=== PATIENT | male | born 1975 | race Caucasian/White ===

== ENCOUNTER 2016-11-30 14:48 | Emergency (ER) | payer OTHER ==
[~2016-11-30] VITALS: Ht 177.8 cm; Wt 61.0 kg
[2016-11-30] VITALS (8 sets, daily range): BP systolic 108–128; BP diastolic 73–81; PULSE 84–108; RESP 14–16; TEMP 98.3–99.4; O2SAT 97–98
[~2016-11-30 14:48] MED LIST: DICY1TAB26 PO
[2016-11-30] MEDS ORDERED: SODIUM CHLOR 0.9% 1000 ML INJ 1,000 ML IV SCH (16:32)
--- NOTE | 2016-11-30 16:36 | PD ---
HPI Chief Complaint: Abdominal Pain Time Seen by Provider: 16:21 Travel History International Travel<30 days: No Contact w/Intl Traveler<30days: No Traveled to known affect area: No History of Present Illness HPI 41yo M with no significant PMH presents to the ED with c/o abdominal pain during bowel movement for 5 days. States it is worst during bowel movement and is improved after bowel movement. Does not have pain when he is not having bowel movement but sometimes feels tight. Pt has had this pain intermittently for years and has tried stool softener a few days ago which helped. Denies any fever, chest pain, sob, n/v, dysuria, hematuria, back pain, weakness or numbness. PFSH Past Medical History Hx Anticoagulant Therapy: No Diabetes: No Diminished Hearing: No Thyroid Disease: Yes (HYPERTHYOID) Past Surgical History Other Surgery: Yes (LEFT HAND SURGERY) Social History Alcohol Use: Yes (WEEKLY) Tobacco Use: Yes (1.5 PPD) Substance Use: No Allergies-Medications (Allergen,Severity, Reaction): Coded Allergies: Brown (Verified Allergy, Unknown, 11/30/16) Reported Meds & Prescriptions Reported Meds & Active Scripts Active Acetaminophen Extra Strength (Acetaminophen) 500 Mg Tab 500 Mg PO Q6H PRN Flagyl (Metronidazole) 500 Mg Tab 500 Mg PO TID 10 Days Cipro (Ciprofloxacin HCl) 500 Mg Tab 500 Mg PO BID 10 Days Review of Systems Except as stated in HPI: all other systems reviewed are Neg Physical Exam Narrative GENERAL: 41yo M not in distress. SKIN: Focused skin assessment warm/dry. HEAD: Atraumatic. Normocephalic. EYES: Pupils equal and round. No scleral icterus. No injection or drainage. ENT: No nasal bleeding or discharge. Mucous membranes pink and moist. NECK: Trachea midline. No JVD. CARDIOVASCULAR: Regular rate and rhythm. No murmur appreciated. RESPIRATORY: No accessory muscle use. Clear to auscultation. Breath sounds equal bilaterally. GASTROINTESTINAL: Abdomen soft, Mild ttp LLQ. No rebound tenderness or guarding. : No testicular ttp. No penile rash or discharge. No hernia palpated. MUSCULOSKELETAL: No obvious deformities. No clubbing. No cyanosis. No edema. NEUROLOGICAL: Awake and alert. No obvious cranial nerve deficits. Motor grossly within normal limits. Normal speech. PSYCHIATRIC: Appropriate mood and affect; insight and judgment normal. Data Data Last Documented VS Vital Signs Date Time Temp Pulse Resp B/P Pulse Ox O2 Delivery O2 Flow Rate FiO2 11/30/16 22:27 98.3 76 16 115/77 98 11/30/16 18:10 Room Air Orders Complete Blood Count With Diff (11/30/16 16:32) Comprehensive Metabolic Panel (11/30/16 16:32) Urinalysis - C+S If Indicated (11/30/16 16:32) Iv Access Insert/Monitor (11/30/16 16:32) Ecg Monitoring (11/30/16 16:32) Oximetry (11/30/16 16:32) Sodium Chlor 0.9% 1000 Ml Inj (Ns 1000 M (11/30/16 16:32) Sodium Chloride 0.9% Flush (Ns Flush) (11/30/16 16:45) Ketorolac Inj (Toradol Inj) (11/30/16 16:45) Ct Abd/Pel W Iv Contrast(Rout) (11/30/16 ) Ciprofloxacin (Cipro) (11/30/16 21:30) Metronidazole (Flagyl) (11/30/16 21:30) Iohexol 350 Inj (Omnipaque 350 Inj) (11/30/16 20:02) Labs Laboratory Tests Test 11/30/16 11/30/16 16:40 16:45 Urine Color YELLOW Urine Turbidity CLEAR Urine pH 5.5 Urine Specific [place] 1.016 Urine Protein NEG mg/dL Urine Glucose (UA) NEG mg/dL Urine Ketones TRACE mg/dL Urine Occult Blood MOD Urine Nitrite NEG Urine Bilirubin NEG Urine Leukocyte Esterase NEG Urine RBC 0-3 /hpf Urine WBC 0-2 /hpf Urine Mucus RARE /lpf Microscopic Urinalysis Comment CULT NOT INDICATED White Blood Count 14.8 TH/MM3 Red Blood Count 5.16 MIL/MM3 Hemoglobin 15.9 GM/DL Hematocrit 45.7 % Mean Corpuscular Volume 88.6 FL Mean Corpuscular Hemoglobin 30.8 PG Mean Corpuscular Hemoglobin 34.7 % Concent Red Cell Distribution Width 12.8 % Platelet Count 330 TH/MM3 Mean Platelet Volume 7.9 FL Neutrophils (%) (Auto) 80.1 % Lymphocytes (%) (Auto) 11.2 % Monocytes (%) (Auto) 7.3 % Eosinophils (%) (Auto) 0.6 % Basophils (%) (Auto) 0.8 % Neutrophils # (Auto) 11.8 TH/MM3 Lymphocytes # (Auto) 1.7 TH/MM3 Monocytes # (Auto) 1.1 TH/MM3 Eosinophils # (Auto) 0.1 TH/MM3 Basophils # (Auto) 0.1 TH/MM3 CBC Comment DIFF FINAL Differential Comment Sodium Level 137 MEQ/L Potassium Level 4.1 MEQ/L Chloride Level 100 MEQ/L Carbon Dioxide Level 27.5 MEQ/L Anion Gap 10 MEQ/L Blood Urea Nitrogen 10 MG/DL Creatinine 0.97 MG/DL Estimat Glomerular Filtration 84 ML/MIN Rate Random Glucose 87 MG/DL Calcium Level 9.2 MG/DL Total Bilirubin 0.6 MG/DL Aspartate Amino Transf 21 U/L (AST/SGOT) Alanine Aminotransferase 21 U/L (ALT/SGPT) Alkaline Phosphatase 86 U/L Total Protein 8.3 GM/DL Albumin 3.6 GM/DL MDM Medical Decision Making Medical Screen Exam Complete: Yes Emergency Medical Condition: Yes Interpretation(s) Laboratory Tests Test 11/30/16 11/30/16 16:40 16:45 Urine Color YELLOW (YELLW/STRAW) Urine Turbidity CLEAR (CLEAR) Urine pH 5.5 (5.0-8.5) Urine Specific [place] 1.016 (1.002-1.035) Urine Protein NEG mg/dL (NEG-TRACE) Urine Glucose (UA) NEG mg/dL (NEG) Urine Ketones TRACE mg/dL (NEG) Urine Occult Blood MOD (NEG) Urine Nitrite NEG (NEG) Urine Bilirubin NEG (NEG) Urine Leukocyte Esterase NEG (NEG) Urine RBC 0-3 /hpf (0-3) Urine WBC 0-2 /hpf (0-5) Urine Mucus RARE /lpf (OCC) Microscopic Urinalysis Comment CULT NOT INDICATED White Blood Count 14.8 TH/MM3 (4.0-11.0) Red Blood Count 5.16 MIL/MM3 (4.50-5.90) Hemoglobin 15.9 GM/DL (13.0-17.0) Hematocrit 45.7 % (39.0-51.0) Mean Corpuscular Volume 88.6 FL (80.0-100.0) Mean Corpuscular Hemoglobin 30.8 PG (27.0-34.0) Mean Corpuscular Hemoglobin 34.7 % Concent (32.0-36.0) Red Cell Distribution Width 12.8 % (11.6-17.2) Platelet Count 330 TH/MM3 (150-450) Mean Platelet Volume 7.9 FL (7.0-11.0) Neutrophils (%) (Auto) 80.1 % (16.0-70.0) Lymphocytes (%) (Auto) 11.2 % (9.0-44.0) Monocytes (%) (Auto) 7.3 % (0.0-8.0) Eosinophils (%) (Auto) 0.6 % (0.0-4.0) Basophils (%) (Auto) 0.8 % (0.0-2.0) Neutrophils # (Auto) 11.8 TH/MM3 (1.8-7.7) Lymphocytes # (Auto) 1.7 TH/MM3 (1.0-4.8) Monocytes # (Auto) 1.1 TH/MM3 (0-0.9) Eosinophils # (Auto) 0.1 TH/MM3 (0-0.4) Basophils # (Auto) 0.1 TH/MM3 (0-0.2) CBC Comment DIFF FINAL Differential Comment Sodium Level 137 MEQ/L (136-145) Potassium Level 4.1 MEQ/L (3.5-5.1) Chloride Level 100 MEQ/L (98-107) Carbon Dioxide Level 27.5 MEQ/L (21.0-32.0) Anion Gap 10 MEQ/L (5-15) Blood Urea Nitrogen 10 MG/DL (7-18) Creatinine 0.97 MG/DL (0.60-1.30) Estimat Glomerular Filtration 84 ML/MIN (>89) Rate Random Glucose 87 MG/DL (74-106) Calcium Level 9.2 MG/DL (8.5-10.1) Total Bilirubin 0.6 MG/DL (0.2-1.0) Aspartate Amino Transf 21 U/L (15-37) (AST/SGOT) Alanine Aminotransferase 21 U/L (12-78) (ALT/SGPT) Alkaline Phosphatase 86 U/L (45-117) Total Protein 8.3 GM/DL (6.4-8.2) Albumin 3.6 GM/DL (3.4-5.0) Last Impressions Abdomen/Pelvis CT 11/30/16 0000 Signed Impressions: Service Date/Time: Wednesday, November 30, 2016 19:49 - CONCLUSION: Diffuse wall thickening and pericolic inflammatory changes in the region of the sigmoid colon consistent with acute diverticulitis. No pericolic abscess is noted. Radames Sandhu MD Differential Diagnosis Constipation vs. colitis vs. UTI vs. nephrolithiasis Narrative Course 41yo M with abdominal pain that is worst with bowel movement. Pain improved after toradol. Pt reevaluated and abdominal exam is benign. Labs reviewed, leukocytosis at 14.8. CMP unremarkable. UA showed no leukocyte. CT abd/ pelvis showed diffuse wall thickening and pericolic inflammatory changes in sigmoid colon consisting with acute diverticulitis. No pericolic abscess. Pt is well appearing and tolerating PO. Pt given first dose of cipro and flagyl. Strict return precautions given. Diagnosis Primary Impression: Diverticulitis Qualified Code: K57.32 - Diverticulitis of large intestine without perforation or abscess without bleeding Patient Instructions: General Instructions Departure Forms: Tests/Procedures Additional Instructions: Please follow up with your PMD in 3-7 days. Return to the ED if symptoms worsen. Med/Other Pt SpecificInfo: Prescription(s) given Scripts Acetaminophen (Acetaminophen Extra Strength)500 Mg Tmg882 Mg PO Q6H PRN (PAIN SCALE 1 TO 4) #20 TAB Ref 0 Prov:Marcy Adan DO 11/30/16 Metronidazole (Flagyl)500 Mg Sez150 Mg PO TID 10 Days Ref 0 Prov:Marcy Adan DO 11/30/16 Ciprofloxacin (Cipro)500 Mg Fxm041 Mg PO BID 10 Days Ref 0 Prov:Marcy Adan DO 11/30/16 Disposition: 01 DISCHARGE HOME Condition: Stable Marcy Adan DO Nov 30, 2016 16:36
[2016-11-30] MEDS ORDERED: SODIUM CHLORIDE 0.9% FLUSH 10 ML FLUSH IV FLUSH PRN (16:45)
[2016-11-30] MEDS ORDERED: KETOROLAC TROMETHAMINE 30 MG/ML (IVP) VIAL IVP ONE (16:45)
[2016-11-30 16:59] LABS: AUTOMATED NEUTROPHIL # 11.8 TH/MM3 (1.8-7.7); BASOPHIL # 0.1 TH/MM3 (0-0.2); BASOPHIL % 0.8 % (0.0-2.0); EOSINOPHIL # 0.1 TH/MM3 (0-0.4); EOSINOPHIL % 0.6 % (0.0-4.0); HEMATOCRIT 45.7 % (39.0-51.0); HEMO FLAGS DIFF FINAL; LYMPH % 11.2 % (9.0-44.0); LYMPHOCYTE # 1.7 TH/MM3 (1.0-4.8); MEAN CELL VOLUME 88.6 FL (80.0-100.0); MEAN CORPUSCULAR HEMOGLOBIN 30.8 PG (27.0-34.0); MEAN CORPUSCULAR HGB CONC 34.7 % (32.0-36.0); MONO % 7.3 % (0.0-8.0); NEUT % 80.1 % (16.0-70.0); PLATELET COUNT 330 TH/MM3 (150-450); RED BLOOD COUNT 5.16 MIL/MM3 (4.50-5.90); RED CELL DISTRIBUTION WIDTH 12.8 % (11.6-17.2); WHITE BLOOD COUNT 14.8 TH/MM3 (4.0-11.0)
[2016-11-30 17:04] LABS: GLUCOSE,URINE NEG (NEG); KETONE, URINE TRACE mg/dL (NEG); NITRITE,URINE NEG (NEG); PH, URINE 5.5 (5.0-8.5)
[2016-11-30 17:04] LABS: CHLORIDE 100 MEQ/L (98-107); POTASSIUM 4.1 MEQ/L (3.5-5.1); SODIUM (NA) 137 MEQ/L (136-145)
[2016-11-30 17:09] LABS: ANION GAP 10 MEQ/L (5-15); BICARBONATE 27.5 MEQ/L (21.0-32.0); BLOOD UREA NITROGEN 10 MG/DL (7-18)
[2016-11-30 17:12] LABS: ALT (GPT) 21 U/L (12-78); AST (GOT) 21 U/L (15-37); GLOMERULAR FILTRATION RATE 84 ML/MIN (>89)
[2016-11-30 17:13] LABS: BLOOD, URINE MOD (NEG)
[2016-11-30 17:14] LABS: TOTAL BILIRUBIN ADULT 0.6 MG/DL (0.2-1.0)
[2016-11-30 17:14] LABS: URINE COLOR YELLOW (YELLW/STRAW)
[2016-11-30 17:15] LABS: ALKALINE PHOSPHATASE 86 U/L (45-117)
[2016-11-30 17:15] LABS: COMMENT (UR) CULT NOT INDICATED; CULTURE IF INDICATED CULT NOT INDICATED; MUCUS URINE RARE /lpf (OCC); RBC, URINE 0-3 /hpf (0-3); WBC, URINE 0-2 /hpf (0-5)
[2016-11-30] MEDS ORDERED: IOHEXOL 350 MG/ML 10 ML VIAL (for RAD DIAG) IV ONE (20:02)
--- NOTE | 2016-11-30 20:30 | RADHPO ---
EXAM DATE/TIME: 11/30/2016 19:49 [facility] COMPARISON: No previous studies available for comparison. INDICATIONS : Abdominal pain with bowel movement. IV CONTRAST: 100 cc Omnipaque 350 (iohexol) IV ORAL CONTRAST: No oral contrast ingested. RADIATION DOSE: 5.36 CTDIvol (mGy) MEDICAL HISTORY : None SURGICAL HISTORY : None. ENCOUNTER: Initial ACUITY: 4 - 6 days PAIN SCALE: 3/10 LOCATION: lower quadrant TECHNIQUE: Volumetric scanning of the abdomen and pelvis was performed. Using automated exposure control and ad justment of the mA and/or kV according to patient size, radiation dose was kept as low as reasonably achievable to obtain optimal diagnostic quality images. FINDINGS: LOWER LUNGS: Minimal posterior bibasilar atelectasis is noted. LIVER: Homogeneous density without lesion. There is no dilation of the biliary tree. No calcified gallston es. SPLEEN: Normal size without lesion. PANCREAS: Within normal limits. KIDNEYS: Normal in size and shape. There is no mass, stone or hydronephrosis. ADRENAL GLANDS: Within normal limits. VASCULAR: There is no aortic aneurysm. BOWEL/MESENTERY: There is diffuse wall thickening and pericolic inflammatory changes in the region of the sigmoid colo n consistent with acute diverticulitis. No pericolic abscess is noted. ABDOMINAL WALL: Within normal limits. RETROPERITONEUM: There is no lymphadenopathy. BLADDER: No wall thickening or mass. REPRODUCTIVE: Within normal limits. INGUINAL: There is no lymphadenopathy or hernia. MUSCULOSKELETAL: Within normal limits for patient age. CONCLUSION: Diffuse wall thickening and pericolic inflammatory changes in the region of the sigmo id colon consistent with acute diverticulitis. No pericolic abscess is noted. Radames Sandhu MD on November 30, 2016 at 20:26 Board Certified Radiologist. This report was verified electronically.
[2016-11-30] MEDS ORDERED: METR-1 PO (21:23)
[2016-11-30] MEDS ORDERED: CIPR-9 PO (21:23)
[2016-11-30] MEDS ORDERED: ACET500T36 PO (21:23)
[2016-11-30] MEDS ORDERED: metroNIDAZOLE 500 MG TAB PO ONE (21:30)
[2016-11-30] MEDS ORDERED: CIPROFLOXACIN 500 MG TAB PO ONE (21:30)
== END 2016-11-30 22:30 | disposition home or self-care (01) ==
LOC: PHED 14:48
DX: K57.92 Diverticulitis of intestine, part unspecified, without perforation or abscess without bleeding (principal); E07.9 Disorder of thyroid, unspecified; F17.210 Nicotine dependence, cigarettes, uncomplicated
CPT/HCPCS: 74177; 80053; 81001; 85025; 96361; 96374; 99284; J1885; J7030; Q9967